=== PATIENT | male | born 1985 | race Caucasian/White ===

== ENCOUNTER 2017-11-24 17:53 | Day surgery (SDC) | payer BC ==
[2017-11-24] MEDS ORDERED: Glucagon,Human Recombinant 1 MG Vial IVPUSH ONE (18:01)
--- NOTE | 2017-11-24 18:01 | EDM.PDOC ---
<Jose R Becerra - Last Filed: 11/24/17 19:16> ED HPI GENERAL MEDICAL PROBLEM - General Chief Complaint: ENT Problem Stated Complaint: FOOD STUCK IN HIS THROAT Time Seen by Provider: 11/24/17 17:59 Source of Information: Reports: Patient History Limitations: Reports: No Limitations - History of Present Illness INITIAL COMMENTS - FREE TEXT/NARRATIVE: HISTORY AND PHYSICAL: History of present illness: 32-year-old male presenting emergency department with chief complaint of stopped food was 6 hours. Patient states that roughly 6 hours ago. He was eating steak when he choked. States that since then he has been unable to keep any fluids down. States he is unable to swallow. This has happened in the past, but he is normally able to vomit it back up. This time he is unable to and skin emergency department for further evaluation. Patient states he has had no airway compromise and is breathing fine. Has no hot potato voice or drooling. He denies any chest pain, palpitation, shortness breath, syncopal episode, focal neurologic deficits. Review of systems: As per history of present illness and below otherwise all systems reviewed and negative. Past medical history: As per history of present illness and as reviewed below otherwise noncontributory. Surgical history: As per history of present illness and as reviewed below otherwise noncontributory. Social history: No reported history of drug or alcohol abuse. Family history: As per history of present illness and as reviewed below otherwise noncontributory. Physical exam: HEENT: Atraumatic, normocephalic, pupils reactive, negative for conjunctival pallor or scleral icterus, mucous membranes moist, throat clear, neck supple, nontender, trachea midline. Lungs: Clear to auscultation, breath sounds equal bilaterally, chest nontender. Heart: S1S2, regular, negative for clicks, rubs, or JVD. Abdomen: Soft, nondistended, nontender. Negative for masses or hepatosplenomegaly. Negative for costovertebral tenderness. Pelvis: Stable nontender. Genitourinary: Deferred. Rectal: Deferred. Extremities: Atraumatic, negative for cords or calf pain. Neurovascular unremarkable. Neuro: Awake, alert, oriented. Cranial nerves II through XII unremarkable. Cerebellum unremarkable. Motor and sensory unremarkable throughout. Exam nonfocal. Diagnostics: Chest, neck, abdomen, neck, sore Therapeutics: 1 L normal saline, 1 milligram glucagon IV Impression: Impaction food bolus Plan: On examination at 1845. Patient states that he did feel better, however, was still having swallowing sputum. Imaging is pending. Dr. Fletcher will be taking over care. History as well as physical exam and findings were discussed with him. All questions were entertained and answered. - Related Data Allergies Allergy/AdvReac Type Severity Reaction Status Date / Time No Known Allergies Allergy Verified 11/24/17 17:58 Home Meds: Home Meds . [No Known Home Meds] 06/22/16 [History] Past Medical History Cardiovascular History: Reports: None Respiratory History: Reports: None Gastrointestinal History: Reports: None Genitourinary History: Reports: None Musculoskeletal History: Reports: None Neurological History: Reports: None Psychiatric History: Reports: None Endocrine/Metabolic History: Reports: None Hematologic History: Reports: None Immunologic History: Reports: None Oncologic (Cancer) History: Reports: None Dermatologic History: Reports: None - Infectious Disease History Infectious Disease History: Reports: Chicken Pox - Past Surgical History HEENT Surgical History: Reports: Other (See Below) Social & Family History - Family History Family Medical History: Noncontributory - Caffeine Use Caffeine Use: Reports: Coffee Course - Vital Signs Last Recorded V/S: Last Vital Signs Temp 98.0 F 11/24/17 17:59 Pulse 98 11/24/17 17:59 Resp 20 11/24/17 17:59 BP 131/86 11/24/17 17:59 Pulse Ox 98 11/24/17 17:59 - Orders/Labs/Meds Orders: Active Orders 24 hr Category Date Time Status Verify Patient Consent Obtain [RC] ASDIRECTED Care 11/24/17 19:40 Active Nothing per Oral Now Diet [DIET] Diet 11/24/17 Breakfast Active Abdomen 2V AP Flat Upright [CR] Stat Exams 11/24/17 18:03 Taken Chest 2V [CR] Stat Exams 11/24/17 18:03 Taken Neck Soft Tissue [CR] Stat Exams 11/24/17 18:03 Taken Lactated Ringers [Ringers, Lactated] 1,000 ml Med 11/24/17 19:45 Active IV ASDIRECTED Sodium Chloride 0.9% [Saline Flush] Med 11/24/17 19:40 Active 10 ml FLUSH ASDIRECTED PRN Sodium Chloride 0.9% [Saline Flush] Med 11/24/17 19:40 Active 2.5 ml FLUSH ASDIRECTED PRN Medication Administration Instruction [OM.PC] Routine Oth 11/24/17 19:40 Ordered Peripheral IV Insertion Adult [OM.PC] Routine Oth 11/24/17 19:40 Ordered Medication Orders Lactated Ringer's (Ringers, Lactated) 1,000 mls @ 125 mls/hr IV ASDIRECTED AZRA Sodium Chloride (Saline Flush) 10 ml FLUSH ASDIRECTED PRN PRN Reason: Keep Vein Open Sodium Chloride (Saline Flush) 2.5 ml FLUSH ASDIRECTED PRN PRN Reason: Keep Vein Open Meds: Medications Generic Name Dose Route Start Last Admin Trade Name Freq PRN Reason Stop Dose Admin Lactated Ringer's 1,000 mls @ 125 mls/hr 11/24/17 19:45 Ringers, Lactated IV ASDIRECTED AZRA Sodium Chloride 10 ml 11/24/17 19:40 Saline Flush FLUSH ASDIRECTED PRN Keep Vein Open Sodium Chloride 2.5 ml 11/24/17 19:40 Saline Flush FLUSH ASDIRECTED PRN Keep Vein Open Discontinued Medications Generic Name Dose Route Start Last Admin Trade Name Freq PRN Reason Stop Dose Admin Glucagon 1 mg 11/24/17 18:01 11/24/17 18:06 Glucagen IVPUSH 11/24/17 18:02 1 mg ONETIME ONE Administration Sodium Chloride 1,000 mls @ 999 mls/hr 11/24/17 18:02 11/24/17 18:06 Normal Saline IV 11/24/17 19:02 999 mls/hr STAT ONE Administration Departure - Departure Disposition: Still A Patient 30 Clinical Impression: Dysphasia - Discharge Information Referrals: PCP,Unknown [Primary Care Provider] - Forms: ED Department Discharge <Judson Craft - Last Filed: 11/24/17 19:48> ED HPI GENERAL MEDICAL PROBLEM - History of Present Illness INITIAL COMMENTS - FREE TEXT/NARRATIVE: Dr. Dr. Rocha consult that she'll be down to the ER to evaluate patient further disposition and treatment pending her evaluation ED ROS GENERAL - Review of Systems Review Of Systems: See Below ED EXAM, GENERAL - Physical Exam Exam: See Below Departure - Departure Time of Disposition: 19:47 Condition: Good
[2017-11-24] MEDS ORDERED: Sodium Chloride 0.9% 1,000 ML IV ONE (18:02)
[2017-11-24] MEDS ORDERED: Sodium Chloride 0.9% 2.5 ML Syringe FLUSH PRN (19:40)
[2017-11-24] MEDS ORDERED: Sodium Chloride 0.9% 10 ML Syringe FLUSH PRN (19:40)
[2017-11-24] MEDS ORDERED: Lactated Ringers 1,000 ML IV SCH (19:45)
[2017-11-24] MEDS ORDERED: Lidocaine 2% 5 ML SDV ONE (19:57)
[2017-11-24] MEDS ORDERED: Midazolam 1 MG/ML 2 ML SDV ONE (19:57)
[2017-11-24] MEDS ORDERED: Succinylcholine 200 MG/10 ML MDV ONE (19:57)
[2017-11-24] MEDS ORDERED: Ondansetron 4 MG/2 ML SDV ONE (19:57)
[2017-11-24] MEDS ORDERED: Rocuronium 10 MG/ML 10 ML Syringe ONE (19:57)
[2017-11-24] MEDS ORDERED: fentaNYL 250 MCG/5 ML SDV ONE (19:57)
[2017-11-24] MEDS ORDERED: Propofol 200 MG/20 ML SDV ONE (19:57)
--- NOTE | 2017-11-24 20:30 | PCM.OPNOTE ---
- General Post-Op/Procedure Note Date of Surgery/Procedure: 11/24/17 Operative Procedure(s): EGD with removal of food bolus Findings: Esophageal stricture @ 30cm with impacted steak bolus. Tissue appeared inflamed and friable at the level of the impaction and distally. Pre Op Diagnosis: Impacted food bolus Post-Op Diagnosis: same, esophageal stricture Anesthesia Technique: General ET Tube Primary Surgeon: Jacquelyn Daly Condition: Stable
--- NOTE | 2017-11-24 20:36 | PCM.PREANE ---
Preanesthetic Assessment - Anesthesia/Transfusion/Family Hx Anesthesia History: Prior Anesthesia Without Reaction Transfusion History: No Prior Transfusion(s) - Review of Systems General: No Symptoms Pulmonary: No Symptoms Cardiovascular: No Symptoms Gastrointestinal: No Symptoms Neurological: No Symptoms Other: Reports: None - Physical Assessment NPO Status Date: 11/24/17 NPO Status Time: 19:30 O2 Sat by Pulse Oximetry: 98 Respiratory Rate: 20 Vital Signs: Last Vital Signs Temp 98.0 F 11/24/17 17:59 Pulse 98 11/24/17 17:59 Resp 20 11/24/17 17:59 BP 131/86 11/24/17 17:59 Pulse Ox 98 11/24/17 17:59 Height: 5 ft 10 in Weight: 81.647 kg ASA Class: 1E Mental Status: Alert & Oriented x3 Airway Class: Mallampati = 2 Dentition: Reports: Normal Dentition Thyro-Mental Finger Breadths: 3 Mouth Opening Finger Breadths: 3 ROM/Head Extension: Full Lungs: Clear to Auscultation, Normal Respiratory Effort Cardiovascular: Regular Rate, Regular Rhythm - Allergies Allergies/Adverse Reactions: Allergies Allergy/AdvReac Type Severity Reaction Status Date / Time No Known Allergies Allergy Verified 11/24/17 17:58 - Acknowledgements Anesthesia Type Planned: General Anesthesia (RSI) Pt an Appropriate Candidate for the Planned Anesthesia: Yes Alternatives and Risks of Anesthesia Discussed w Pt/Guardian: Yes Pt/Guardian Understands and Agrees with Anesthesia Plan: Yes PreAnesthesia Questionnaire HEENT History: Reports: None Cardiovascular History: Reports: None Respiratory History: Reports: None Gastrointestinal History: Reports: None Genitourinary History: Reports: None Musculoskeletal History: Reports: None Neurological History: Reports: None Psychiatric History: Reports: None Endocrine/Metabolic History: Reports: None Hematologic History: Reports: None Immunologic History: Reports: None Oncologic (Cancer) History: Reports: None Dermatologic History: Reports: None - Infectious Disease History Infectious Disease History: Reports: Chicken Pox - Past Surgical History HEENT Surgical History: Reports: Other (See Below) - SUBSTANCE USE Smoking Status *Q: Never Smoker Recreational Drug Use History: No - HOME MEDS Home Medications: Home Meds . [No Known Home Meds] 06/22/16 [History] - CURRENT (IN HOUSE) MEDS Current Meds: Current Medications Discontinued Medications Fentanyl (Sublimaze) Confirm Administered Dose 250 mcg .ROUTE .STK-MED ONE Stop: 11/24/17 19:58 Glucagon (Glucagen) 1 mg IVPUSH ONETIME ONE Stop: 11/24/17 18:02 Last Admin: 11/24/17 18:06 Dose: 1 mg Sodium Chloride (Normal Saline) 1,000 mls @ 999 mls/hr IV STAT ONE Stop: 11/24/17 19:02 Last Admin: 11/24/17 18:06 Dose: 999 mls/hr Lactated Ringer's (Ringers, Lactated) 1,000 mls @ 125 mls/hr IV ASDIRECTED AZRA Lidocaine (Xylocaine-Mpf 2%) Confirm Administered Dose 5 ml .ROUTE .STK-MED ONE Stop: 11/24/17 19:58 Midazolam HCl (Versed 1 Mg/Ml) Confirm Administered Dose 2 mg .ROUTE .STK-MED ONE Stop: 11/24/17 19:58 Ondansetron HCl (Zofran) Confirm Administered Dose 4 mg .ROUTE .STK-MED ONE Stop: 11/24/17 19:58 Propofol (Diprivan 20 Ml) Confirm Administered Dose 200 mg .ROUTE .STK-MED ONE Stop: 11/24/17 19:58 Rocuronium Spring (Zemuron) Confirm Administered Dose 100 mg .ROUTE .STK-MED ONE Stop: 11/24/17 19:58 Sodium Chloride (Saline Flush) 10 ml FLUSH ASDIRECTED PRN PRN Reason: Keep Vein Open Sodium Chloride (Saline Flush) 2.5 ml FLUSH ASDIRECTED PRN PRN Reason: Keep Vein Open Succinylcholine Chloride (Quelicin) Confirm Administered Dose 200 mg .ROUTE .STK -MED ONE Stop: 11/24/17 19:58
--- NOTE | 2017-11-24 20:54 | PCM.HP ---
H&P History of Present Illness - General Date of Service: 11/24/17 Admit Problem/Dx: Esophageal stricture, impacted food bolus Source of Information: Patient History Limitations: Reports: No Limitations - History of Present Illness Initial Comments - Free Text/Narative: Patient was eating steak today when he had a piece of steak get caught in his esophagus. He has had food bolus obstructions in the past. He has always been able to throw them up. He has never had any work up for this. He denies chest pain or retro-sternal burning. He does not take antacids. He denies fevers or chills. He was given glucagon with no results. - Related Data Allergies/Adverse Reactions: Allergies Allergy/AdvReac Type Severity Reaction Status Date / Time No Known Allergies Allergy Verified 11/24/17 17:58 Home Medications: Home Meds . [No Known Home Meds] 06/22/16 [History] Past Medical History HEENT History: Reports: None Cardiovascular History: Reports: None Respiratory History: Reports: None Gastrointestinal History: Reports: None Genitourinary History: Reports: None Musculoskeletal History: Reports: None Neurological History: Reports: None Psychiatric History: Reports: None Endocrine/Metabolic History: Reports: None Hematologic History: Reports: None Immunologic History: Reports: None Oncologic (Cancer) History: Reports: None Dermatologic History: Reports: None - Infectious Disease History Infectious Disease History: Reports: Chicken Pox - Past Surgical History HEENT Surgical History: Reports: Other (See Below) Social & Family History - Family History Family Medical History: Noncontributory - Tobacco Use Smoking Status *Q: Never Smoker - Caffeine Use Caffeine Use: Reports: Coffee - Recreational Drug Use Recreational Drug Use: No H&P Review of Systems - Review of Systems: Review Of Systems: ROS reveals no pertinent complaints other than HPI. Exam - Exam Exam: See Below - Vital Signs Vital Signs: Last Vital Signs Temp 36.9 C 11/24/17 20:30 Pulse 99 11/24/17 20:45 Resp 17 11/24/17 20:45 BP 121/81 11/24/17 20:45 Pulse Ox 99 11/24/17 20:45 Weight: 81.647 kg - Exam General: Alert, Oriented, Cooperative HEENT: Conjunctiva Clear, EACs Clear, Posterior Pharynx Clear, Pupils Equal, Pupils Reactive Neck: Supple, Trachea Midline Lungs: Clear to Auscultation, Normal Respiratory Effort Cardiovascular: Regular Rate, Regular Rhythm GI/Abdominal Exam: Soft, Non-Tender, No Distention, No Mass - Problem List (1) Impacted esophageal foreign body SNOMED Code(s): 04024285 ICD Code: T18.108A - UNSP FOREIGN BODY IN ESOPHAGUS CAUSING OTH INJURY, INIT Status: Acute (2) Esophageal stricture SNOMED Code(s): 26796353 ICD Code: K22.2 - ESOPHAGEAL OBSTRUCTION Status: Acute Problem List Initiated/Reviewed/Updated: Yes Orders Last 24hrs: Active Orders 24 hr Category Date Time Status Admission Status [Patient Status] [ADT] Stat ADT 11/24/17 20:13 Active Notify Provider Consults [RC] ASDIRECTED Care 11/24/17 19:50 Active Ready for Discharge [RC] PER UNIT ROUTINE Care 11/24/17 20:32 Active Verify Patient Consent Obtain [RC] ASDIRECTED Care 11/24/17 19:40 Active Consult to Physician [CONS] Stat Cons 11/24/17 19:48 Active Abdomen 2V AP Flat Upright [CR] Stat Exams 11/24/17 18:03 Taken Chest 2V [CR] Stat Exams 11/24/17 18:03 Taken Neck Soft Tissue [CR] Stat Exams 11/24/17 18:03 Taken Medication Administration Instruction [OM.PC] Routine Oth 11/24/17 19:40 Ordered Peripheral IV Insertion Adult [OM.PC] Routine Oth 11/24/17 19:40 Ordered Assessment/Plan Comment:: I explained the need for a diagnostic EGD and food bolus removal. We discussed the procedure, the expected perioperative course and the risks including bleeding, infection or perforation. He verbalized understanding and wishes to proceed.
--- NOTE | 2017-11-24 21:07 | PCM.POSTAN ---
POST ANESTHESIA ASSESSMENT - MENTAL STATUS Mental Status: Alert, Oriented - RESPIRATORY Respiratory Status: Respiratory Rate WNL, Airway Patent, O2 Saturation Stable - CARDIOVASCULAR CV Status: Pulse Rate WNL, Blood Pressure Stable - GASTROINTESTINAL GI Status: No Symptoms - POST OP HYDRATION Hydration Status: Adequate & Stable
--- NOTE | 2017-11-24 21:19 | PCM48HPAN ---
Post Anesthesia Note - EVALUATION WITHIN 48HRS OF ANESTHETIC Vital Signs in Normal Range: Yes Patient Participated in Evaluation: Yes Respiratory Function Stable: Yes Airway Patent: Yes Cardiovascular Function Stable: Yes Hydration Status Stable: Yes Pain Control Satisfactory: Yes Nausea and Vomiting Control Satisfactory: Yes Mental Status Recovered: Yes Resp Rate: 20
[2017-11-24 22:57] VITALS: BP 107/66
--- NOTE | 2017-11-25 08:48 | CR ---
EXAM DATE: 11/24/17 PATIENT'S AGE: 32 Patient: LUIS HAYNES Facility: [place], [place] Site . Site : 1985 Study: XRay Chest [id number]/18/2018 7:20:31 PM Ordering Physician: Hernan Odell Final Report: INDICATION: Food bolus lodged in throat TECHNIQUE: Chest 2 views COMPARISON: None FINDINGS: Cardiovascular and mediastinum: Heart size and vasculature are normal in caliber and appearance. Mediastinum is within normal limits. Lungs and pleural spaces: No focal consolidation. No sign of pleural effusion. No pneumothorax. Bones and soft tissues: No significant findings. IMPRESSION: No acute cardiopulmonary disease. Dictated by Srikanth Olivia MD @ 11/24/2017 7:33:20 PM Dictated by: Srikanth Olivia MD @ 11/24/2017 19:33:58 (Electronic Signature) Report Signed by Proxy. [facility]
--- NOTE | 2017-11-25 08:49 | CR ---
EXAM DATE: 11/24/17 PATIENT'S AGE: 32 Patient: LUIS HAYNES Facility: [place], [place] Site . Site : 1985 Study: XRay ST Neck [id number]/18/2018 7:20:55 PM Ordering Physician: Hernan Odell Final Report: INDICATION: Food bolus lodged in throat TECHNIQUE: Soft tissue neck 2 view. COMPARISON: None. FINDINGS: The airway is patent and normal. Epiglottis is normal. The retropharyngeal soft tissues are normal. No obvious masses. The visualized cervical spine demonstrates no significant findings. IMPRESSION: No acute abnormality. Dictated by: Srikanth Olivia MD @ 11/24/2017 19:36:39 (Electronic Signature) Report Signed by Proxy. [facility]
--- NOTE | 2017-11-25 08:51 | CR ---
EXAM DATE: 11/24/17 PATIENT'S AGE: 32 Patient: LUIS HAYNES Facility: [place], [place] Site . Site : 1985 Study: XRay Abdomen [id number]/18/2018 7:21:14 PM Ordering Physician: Hernan Odell Final Report: INDICATION: Food bolus lodged in throat TECHNIQUE: Abdomen 4 view COMPARISON: None FINDINGS: Bowel: Nonobstructive bowel-gas pattern. Moderate amount of stool. Soft tissues: Pelvic phleboliths. No sign of soft tissue mass. No suspicious calcifications. Bones: Unremarkable for age. IMPRESSION: Nonobstructive bowel gas pattern. Moderate amount of stool.. Dictated by Srikanth Olivia MD @ 11/24/2017 7:43:45 PM Dictated by: Srikanth Olivia MD @ 11/24/2017 19:44:00 (Electronic Signature) Report Signed by Proxy. KEN
--- NOTE | 2017-11-25 19:10 | OR ---
SURGEON: MARIA DEL ROSARIO CONNORS MD DATE OF PROCEDURE: 11/24/2017 PREOPERATIVE DIAGNOSIS: Impacted food bolus in esophagus. POSTOPERATIVE DIAGNOSES: 1. Impacted food bolus in esophagus. 2. Esophageal stricture. PROCEDURE PERFORMED: Esophagogastroduodenoscopy with removal of esophageal food bolus. ANESTHESIA: General endotracheal anesthesia. INSTRUMENT USED: Olympus endoscope. EXTENT OF EXAM: 30 cm at the teeth in the esophagus. COMPLICATIONS: None. INDICATIONS: The patient presented to the emergency room tonight with a piece of steak stuck in his esophagus. He ate lunch at around noon and felt the food impact. He has had multiple obstructions in the past, but has been able to pass them with vomiting. He has never had a work up. He was given glucagon in the ER with no improvement. The decision was made to proceed to the OR to perform a diagnostic EGD with removal of the food bolus. We discussed the procedure as well as expected perioperative course. We discussed the risks including bleeding infection and/or perforation. The patient verbalized understanding and wishes to proceed. PROCEDURE IN DETAIL: The patient was brought into the OR and placed on the OR cart in a beach chair position. A time-out was completed verifying the patient's name, date of , allergies, and procedure to be performed. General endotracheal anesthesia was induced. A bite block was placed in the patient's mouth. A well lubricated endoscope was placed in the mouth and advanced under direct visualization to approximately 30 cm at the teeth. At this position, I noted an impacted piece of meat. Using a tri-prong grasper, I was able to grasp the food bolus in a single piece and removed it through the mouth. The scope was then brought back into the esophagus and I was able to take a better look at the esophageal mucosa. It appeared inflamed and friable. There was no evidence of any tear or ulceration. I was unable to pass my scope past this area of obstruction indicating that the patient had esophageal stricture. This was high enough that I was not able to visualize the GE junction. The scope was then removed and the procedure terminated. The patient was taken to the PACU in stable condition. ENDOSCOPIC DIAGNOSES: 1. Impacted food bolus in esophagus. 2. Esophageal stricture. RECOMMENDATIONS: I will start the patient on pantoprazole 40 mg daily. He will follow up in clinic in 1 to 2 weeks to discuss further workup for his esophageal stricture. BOOGIE / MICHAEL /[id number] MTDTeresa
== END 2017-11-24 22:42 | disposition home or self-care (01) ==
LOC: MW.ED 17:53 → MW.SDS 20:13
PROVIDERS: ATTEND Surgery
DX: T18.128A Food in esophagus causing other injury, initial encounter (principal); K22.2 Esophageal obstruction
CPT/HCPCS: 43215; 70360; 71046; 74019; 96361; 96374; 99284; J0330; J1610; J2250; J2405; J3010; J7040; 99283; J2704